=== PATIENT | female | born 1990 | race Caucasian/White ===

== ENCOUNTER 2024-01-22 22:14 | Emergency (ER) | payer MEDICAID ==
[~2024-01-22] VITALS: Ht 162.6 cm; Wt 59.1 kg
[~2024-01-22 22:14] MED LIST: DEPAKOTE500 MG PO
[2024-01-22 22:16] VITALS: TEMP 98.6
[2024-01-22] MEDS ORDERED: LORazepam 2 MG/ML 1 ML VIAL IV ONE (22:30)
[2024-01-22] MEDS ORDERED: NS 1,000 ML IV ONE (22:30)
[2024-01-22 22:32] LABS: BASO # 0.1 K/mm3 (0.0-0.2); BASO % 1.2 % (0.0-2.0); EOS # 0.2 K/mm3 (0.0-0.7); EOS % 2.2 % (0.0-4.0); GRAN # 5.2 K/mm3 (1.4-6.5); GRAN % 51.5 % (42.2-75.2); HEMATOCRIT 38.7 % (37.0-47.0); HEMOGLOBIN 13.2 g/dl (12.5-16.0); LYMPH # 3.8 K/mm3 (1.2-3.4); LYMPH % 37.6 % (20.0-51.0); MEAN CELL VOLUME 94 fl (80.0-100.0); MEAN CORPUSCULAR HEMOGLOBIN 32 pg (27-31); MEAN CORPUSCULAR HGB CONC 34 g/dl (33.0-37.0); MEAN PLATELET VOLUME 10.5 fl (7.4-10.4); MONO # 0.7 K/mm3 (0.1-0.6); MONO % 7.4 % (1.7-9.3); PLATELET COUNT 257 K/mm3 (130-400); RED BLOOD COUNT 4.13 M/mm3 (4.10-5.30); REDCELL DISTRIBUTION WIDTH-CV 12.3 % (11.5-14.5)
[2024-01-22 22:45] LABS: ALBUMIN 3.5 g/dL (3.5-5.0); BILIRUBIN,TOTAL 1.1 mg/dL (0.2-1.2); CALCIUM 9.2 mg/dL (8.4-10.2); CREATININE, serum 0.94 mg/dL (0.57-1.11); POTASSIUM 3.6 mEq/L (3.5-4.5); TOTAL PROTEIN 6.8 g/dl (6.2-8.1)
[2024-01-22] MEDS ORDERED: Home LORazepam 0.5 MG #3 TAB/PACK PO ONE (23:30)
[2024-01-23 00:12] VITALS: BP 123/82; PULSE 80
== END 2024-01-23 00:15 | disposition home or self-care (01) ==
LOC: COL.ER 22:14
PROVIDERS: Emergency Medicine
DX: F41.9 Anxiety disorder, unspecified (principal); R56.9 Unspecified convulsions
CPT/HCPCS: J2060; J7030

== ENCOUNTER 2024-05-04 08:05 | Day surgery (SDC) | payer MEDICAID ==
[~2024-05-04] VITALS: Ht 162.6 cm; Wt 52.9 kg
[~2024-05-04 08:05] MED LIST changes: +LR 1,000 ML IV SCH; +Ondansetron 4 MG/2 ML VIAL IV PRN
[2024-05-04 08:28] VITALS: BP 128/86; PULSE 54; TEMP 97.8
[2024-05-04] MEDS ORDERED: LEXAPRO 10MG10 MG PO (08:34)
[2024-05-04] MEDS ORDERED: ATARAX 10MG10 MG/TAB PO (08:34)
[2024-05-04] MEDS ORDERED: FLEXERIL 1010 MG/TAB PO (08:35)
[2024-05-04] MEDS ORDERED: SEROQUEL 1100 MG/TAB PO (08:35)
[2024-05-04] MEDS ORDERED: PROTONIX 40MG T40 MG PO (08:35)
[2024-05-04] MEDS ORDERED: REMERON 15M15 MG/TA1 PO (08:35)
[2024-05-04] MEDS ORDERED: Ondansetron 4 MG/2 ML VIAL ONE (09:18)
[2024-05-04] MEDS ORDERED: Lidocaine PF 2% (20 MG/ML) 5 ML VIAL ONE (09:18)
[2024-05-04 10:40] VITALS: BP 137/96; PULSE 68; TEMP 97.5
[2024-05-04 10:55] VITALS: BP 160/90; PULSE 68
[2024-05-04 11:10] VITALS: BP 146/79; PULSE 70
--- NOTE | 2024-05-04 11:30 | NUR ---
1040 RETURNS TO ROOM 4 PER CART. AWAKE, ALERT. RESP UNLABORED. AMBULATES TO RECLINER WITH STANDBY ASSIST. DENIES NAUSEA, ABD PAIN OR DYSPHAGIA. VITAL SIGNS OBTAINED. CALL LIGHT AT SIDE. 1055 TOLERATES PO JUICE AND MUFFIN WITHOUT NAUSEA. SWALLOWS WITHOUT DIFFICULTY 1100 FRIEND HERE 1110 DISCHARGE INSTRUCTIONS REVIEWED. PATIENT VERBALIZES UNDERSTANDING. COPY PROVIDED IN DISCHARGE FOLDER 1115 DR. YOUNG HERE TO VISIT WITH PATIENT 1126 DRESSES SELF, THEN AMBULATES TO BATHROOM WITH STANDBY ASSIST
== END 2024-05-04 11:33 | disposition home or self-care (01) ==
LOC: SDCO 08:05
DX: K92.1 Melena (principal); K29.70 Gastritis, unspecified, without bleeding; K29.80 Duodenitis without bleeding; K62.6 Ulcer of anus and rectum; K22.89 Other specified disease of esophagus; K62.89 Other specified diseases of anus and rectum; R19.8 Other specified symptoms and signs involving the digestive system and abdomen; K59.00 Constipation, unspecified; R63.4 Abnormal weight loss; F17.210 Nicotine dependence, cigarettes, uncomplicated; Z80.0 Family history of malignant neoplasm of digestive organs
CPT/HCPCS: J2405; J2704; J7120